=== PATIENT | female | born 1985 | race Two or more races ===

== ENCOUNTER 2018-02-01 21:47 | Emergency (ER) | payer OTHER ==
[~2018-02-01] VITALS: Ht 162.6 cm; Wt 77.1 kg
== END 2018-02-01 23:32 | disposition home or self-care (01) ==
LOC: ER 21:47
DX: S82.61XA Displaced fracture of lateral malleolus of right fibula, initial encounter for closed fracture (principal); W19.XXXA Unspecified fall, initial encounter; Y93.89 Activity, other specified; Y92.098 Other place in other non-institutional residence as the place of occurrence of the external cause; Y99.8 Other external cause status

== ENCOUNTER 2018-02-05 10:09 | Outpatient (CLI) | payer OTHER | END 2018-02-05 10:16 | disposition home or self-care (01) | LOC: RAD 501 10:09 | DX: M25.571 Pain in right ankle and joints of right foot (principal); S93.492A Sprain of other ligament of left ankle, initial encounter ==

== ENCOUNTER 2018-02-12 09:19 | Outpatient (CLI) | payer OTHER | END 2018-02-12 09:35 | disposition home or self-care (01) | LOC: RAD 501 09:19 | DX: S82.64XA Nondisplaced fracture of lateral malleolus of right fibula, initial encounter for closed fracture (principal) ==

== ENCOUNTER 2018-03-21 11:07 | Outpatient (CLI) | payer OTHER | END 2018-03-21 11:23 | disposition home or self-care (01) | LOC: RAD 501 11:07 | DX: S82.64XD Nondisplaced fracture of lateral malleolus of right fibula, subsequent encounter for closed fracture with routine healing (principal) ==